=== PATIENT | female | born 1995 | race Caucasian/White ===

== ENCOUNTER 2017-05-19 19:37 | Emergency (ER) | payer OTHER ==
[~2017-05-19] VITALS: Ht 162.6 cm; Wt 104.3 kg
[~2017-05-19 19:37] MED LIST: MECL-56 PO
[2017-05-19 19:38] VITALS: BP 142/81
--- NOTE | 2017-05-19 20:15 | NUR ---
TO ER OF2
--- NOTE | 2017-05-19 20:36 | NUR ---
Patient being evaluated by physician.
--- NOTE | 2017-05-19 21:00 | NUR ---
21Y/F PT. PRESENTS TO ED WITH C/O ALLERGIC REACTIONS TO SHRIMP , WITH LIP AND FACE TINGLING SENSATION , VOMITING, 10 MINUTES AGO. 27 WEEKS , LMP NOV 09, NO SOB NOTED. AAO X4, AMBULATORY WITH STEADY GAIT. RESPIRATIONS ROOM AIR, EVEN AND UNLABORED. NO S/SX OF DISTRESS, VSS, ER MD MADE AWARE OF PT. STATUS.
[2017-05-19] MEDS ORDERED: diphenhydrAMINE 50 MG CAP PO ONE (21:15)
[2017-05-19 21:22] VITALS: BP 130/76
--- NOTE | 2017-05-19 21:22 | NUR ---
Patient discharged with v/s stable. Written and verbal after care instructions given and explained. Patient alert, oriented and verbalized understanding of instructions. Ambulatory with steady gait. All questions addressed prior to discharge. ID band removed. Patient advised to follow up with PMD. Rx of ZOFRAN ODT 4 MG, BENADRYL 25 MG. given. Patient educated on indication of medication including possible reaction and side effects. Opportunity to ask questions provided and answered.
== END 2017-05-19 21:22 | disposition home or self-care (01) ==
LOC: MED 19:37
DX: O9A.212 Injury, poisoning and certain other consequences of external causes complicating pregnancy, second trimester (principal); T61.8X1A Toxic effect of other seafood, accidental (unintentional), initial encounter; R11.2 Nausea with vomiting, unspecified; Z3A.27 27 weeks gestation of pregnancy; Z79.899 Other long term (current) drug therapy; Y92.89 Other specified places as the place of occurrence of the external cause
CPT/HCPCS: 99283; Q0163

== ENCOUNTER 2018-08-24 15:20 | Emergency (ER) | payer OTHER ==
[~2018-08-24] VITALS: Ht 157.5 cm; Wt 117.7 kg
[2018-08-24 15:26] VITALS: BP 127/76
[2018-08-24] MEDS ORDERED: ACETAMINOPHEN EXTRA STRENGTH 500 MG TAB PO ONE (20:00)
[2018-08-24] MEDS ORDERED: ACETAMINOPHEN EXTRA STRENGTH 500 MG TAB ONE (20:06)
[2018-08-24 21:32] VITALS: BP 120/75
== END 2018-08-24 21:31 | disposition home or self-care (01) ==
LOC: MED 15:20
DX: S63.501A Unspecified sprain of right wrist, initial encounter (principal); I10 Essential (primary) hypertension; Z79.899 Other long term (current) drug therapy; W01.0XXA Fall on same level from slipping, tripping and stumbling without subsequent striking against object, initial encounter; Y93.89 Activity, other specified; Y92.091 Bathroom in other non-institutional residence as the place of occurrence of the external cause; Y99.8 Other external cause status
CPT/HCPCS: 73110; 99284

== ENCOUNTER 2019-06-21 20:00 | Observation (INO) | payer OTHER ==
[~2019-06-21] VITALS: Ht 160 cm; Wt 115.2 kg
[2019-06-21] MEDS ORDERED: LACTATED RINGERS 1,000 ML IV SCH (20:30)
[2019-06-21 21:29] VITALS: BP 122/69
[2019-06-21 21:54] LABS: BASOPHILS % (AUTO) 0.3 % (0.0-2.0); EOSINOPHILS # (AUTO) 0.2 K/uL (0-0.4); EOSINOPHILS % (AUTO) 1.8 % (0.0-4.0); HEMATOCRIT 33.8 % (36-48); HEMOGLOBIN 11.1 g/dL (12.0-16.0); LYMPHOCYTES # (AUTO) 1.8 K/uL (2.5-16.5); LYMPHOCYTES % (AUTO) 14.5 % (20.5-51.1); MEAN CORPUSCULAR HEMOGLOBIN 26 pg (27-31); MEAN CORPUSCULAR HGB CONC 33 g/dL (33-37); MEAN CORPUSCULAR VOLUME 79.1 fL (80-94); MONOCYTES # (AUTO) 0.7 K/uL (0.8-1.0); MONOCYTES % (AUTO) 6.1 % (1.7-9.3); NEUTROPHILS # (AUTO) 9.4 K/uL (1.8-7.7); NEUTROPHILS % (AUTO) 77.3 % (42.2-75.2); PLATELET COUNT (AUTO) 310 K/uL (140-450); RED BLOOD CELL COUNT(AUTO) 4.28 MIL/uL (4.20-5.40); RED CELL DISTRIBUTION WIDTH 15.3 % (11.6-13.7); WHITE BLOOD COUNT (AUTO) 12.2 K/uL (4.8-10.8)
[2019-06-21 21:58] LABS: APPEARANCE,URINE HAZY (CLEAR); BILIRUBIN,URINE NEGATIVE (NEGATIVE); BLOOD, URINE NEGATIVE (NEGATIVE); COLOR,URINE YELLOW (YELLOW); LEUKOCYTE ESTERASE ,URINE 1+ (NEGATIVE); NITRITE, URINE NEGATIVE (NEGATIVE); UGLUCOSE NEGATIVE (NEGATIVE)
[2019-06-21 22:06] LABS: BARBITURATE, URINE NEG. ng/ml (NEG <=200); BENZODIAZEPINE, URINE NEG. ng/mL (NEG <=200); CANNABINOID, URINE NEG. ng/mL (NEG <=50); COCAINE, URINE NEG. ng/mL (NEG <=300); OPIATE, URINE NEG. ng/mL (NEG <=2000); PHENCYCLIDINE SCREEN,URINE NEG. ng/mL (NEG <=25); RBC,URINE 0-5 /HPF (0-5)
[2019-06-21 22:07] LABS: CALCIUM OXALATE CRYSTALS,UR 0-10 /HPF (None Seen); WBC,URINE 0-5 /HPF (0-5)
[2019-06-21 22:10] LABS: ALBUMIN 2.5 g/dL (3.4-5.0); ANION GAP 14.2 (8-16); CARBON DIOXIDE 22.3 mmol/L (21-32); CREATININE 0.6 mg/dL (0.6-1.3); POTASSIUM 3.5 mmol/L (3.5-5.1); TOTAL BILIRUBIN 0.6 mg/dL (0.0-1.0)
== END 2019-06-21 23:00 | disposition home or self-care (01) ==
LOC: MLD 20:00
PROVIDERS: ADMIT Obstetrics & Gynecology; ATTEND Obstetrics & Gynecology
DX: O26.893 Other specified pregnancy related conditions, third trimester (principal); R42 Dizziness and giddiness; O99.213 Obesity complicating pregnancy, third trimester; O16.3 Unspecified maternal hypertension, third trimester; R10.9 Unspecified abdominal pain; Z3A.32 32 weeks gestation of pregnancy
CPT/HCPCS: 36415; 80053; 80305; 81001; 85025; 87086; G0378

== ENCOUNTER 2020-08-08 17:14 | Emergency (ER) | payer SELFPAY ==
[~2020-08-08] VITALS: Ht 162.6 cm; Wt 127.2 kg
[2020-08-08 17:16] VITALS: BP 141/112
--- NOTE | 2020-08-08 17:27 | NUR ---
AMBULATED TO BED 4
--- NOTE | 2020-08-08 17:31 | NUR ---
25 y/o female from home c/o bilateral wrist tingling and pain x 2 years. Pt denies trauma/injury. Increased pain when writing/typing on computer. 10/10 aching pain at this time. No swelling/deformities noted. Skin warm, dry, and intact. VSS medhx: HTN
--- NOTE | 2020-08-08 17:42 | NUR ---
Dr Jackson at bedside examining pt
[2020-08-08 18:21] VITALS: BP 141/112
--- NOTE | 2020-08-08 18:21 | NUR ---
Patient discharged with v/s stable. Written and verbal after care instructions given and explained. Patient alert, oriented and verbalized understanding of instructions. Ambulatory with steady gait. All questions addressed prior to discharge. ID band removed. Patient advised to follow up with PMD. Rx of Ibuprofen 600mg given. Patient educated on indication of medication including possible reaction and side effects. Opportunity to ask questions provided and answered.
== END 2020-08-08 18:21 | disposition home or self-care (01) ==
LOC: MED 17:14
DX: M25.531 Pain in right wrist (principal); M25.532 Pain in left wrist; I10 Essential (primary) hypertension; X58.XXXA Exposure to other specified factors, initial encounter; Y93.89 Activity, other specified; Y92.89 Other specified places as the place of occurrence of the external cause; Y99.8 Other external cause status
CPT/HCPCS: 99283

== ENCOUNTER 2021-09-07 21:30 | Emergency (ER) | payer MEDICAID, OTHER ==
[~2021-09-07] VITALS: Ht 165.1 cm; Wt 113.4 kg
--- NOTE | 2021-09-07 21:37 | NUR ---
PT MARKEL ALS. TAKEN TO BED 1
[2021-09-07 21:47] VITALS: BP 173/104
--- NOTE | 2021-09-07 22:12 | NUR ---
PATIENT ASSISSTED TO RESTROOM AT THIS TIME.
--- NOTE | 2021-09-07 23:12 | NUR ---
IZAIAH CANDELARIO ASSESSED PATIENT.
--- NOTE | 2021-09-07 23:37 | NUR ---
PATIENT CLEARED FOR DISCHARGE AT THIS TIME. LEFT WITHOUT PAPERWORK OR SIGNATURES, DID NOT WISH TO WAIT FOR DSICHARGE PAPERS. ER NOTIFIED, PATINET ADVISED TO FOLLOW UP WITH PCP AND RETURN IF CONFITION WORENS.
[2021-09-07 23:38] VITALS: BP 158/88
== END 2021-09-07 23:37 | disposition home or self-care (01) ==
LOC: MED 21:30
DX: R07.89 Other chest pain (principal); F41.0 Panic disorder [episodic paroxysmal anxiety]; F32.9 Major depressive disorder, single episode, unspecified; I10 Essential (primary) hypertension; Z79.899 Other long term (current) drug therapy
CPT/HCPCS: 99283

== ENCOUNTER 2023-04-17 03:05 | Emergency (ER) | payer OTHER ==
[~2023-04-17] VITALS: Ht 160 cm; Wt 113.4 kg
[2023-04-17 03:10] VITALS: BP 161/92; PULSE 111; RESP 17; TEMP 98; O2SAT 98
--- NOTE | 2023-04-17 03:10 | NUR ---
to bed ambulatory
[2023-04-17] MEDS ORDERED: LABETALOL 100 MG TAB PO ONE (03:30)
--- NOTE | 2023-04-17 03:30 | NUR ---
URINE SPECIMEN SENT TO LAB
--- NOTE | 2023-04-17 03:35 | NUR ---
Dr. Varghese examining patient.
--- NOTE | 2023-04-17 03:38 | NUR ---
PATIENT RESTING IN BED, A/OX4, CHEST RISE AND FALL SYMMETRICAL, NO S/S OF DISTRESS, ON MONITOR.
[2023-04-17] MEDS ORDERED: LABETALOL 200 MG TAB ONE (03:39)
[2023-04-17] MEDS ORDERED: CRUSHER, PILL MC ONE (03:40)
[2023-04-17 03:46] LABS: APPEARANCE,URINE CLOUDY (CLEAR); BILIRUBIN,URINE NEGATIVE (NEGATIVE); BLOOD, URINE NEGATIVE (NEGATIVE); COLOR,URINE YELLOW (YELLOW); LEUKOCYTE ESTERASE ,URINE 1+ (NEGATIVE); NITRITE, URINE NEGATIVE (NEGATIVE); PH,URINE 6.5 (5.0-9.0); UGLUCOSE NEGATIVE (NEGATIVE)
[2023-04-17 03:50] LABS: RBC,URINE 0-5 /HPF (0-5)
[2023-04-17 03:55] LABS: BASOPHILS % (AUTO) 0.3 % (0.0-2.0); EOSINOPHILS # (AUTO) 0.1 K/uL (0-0.4); EOSINOPHILS % (AUTO) 0.9 % (0.0-4.0); HEMATOCRIT 36.7 % (36-48); HEMOGLOBIN 12.6 g/dL (12.0-16.0); LYMPHOCYTES # (AUTO) 1.9 K/uL (2.5-16.5); MEAN CORPUSCULAR HEMOGLOBIN 28 pg (27-31); MEAN CORPUSCULAR HGB CONC 34 g/dL (33-37); MEAN CORPUSCULAR VOLUME 80.9 fL (80-94); MONOCYTES # (AUTO) 0.7 K/uL (0.8-1.0); NEUTROPHILS # (AUTO) 8.1 K/uL (1.8-7.7); NEUTROPHILS % (AUTO) 74.8 % (42.2-75.2); PLATELET COUNT (AUTO) 334 K/uL (140-450); RED BLOOD CELL COUNT(AUTO) 4.54 MIL/uL (4.20-5.40); RED CELL DISTRIBUTION WIDTH 14.9 % (11.6-13.7); WHITE BLOOD COUNT (AUTO) 10.8 K/uL (4.8-10.8)
[2023-04-17 04:04] LABS: ALBUMIN 3.1 g/dL (3.4-5.0); ANION GAP 14.5 (8-16); CARBON DIOXIDE 24.8 mmol/L (21-32); CREATININE 0.6 mg/dL (0.6-1.3); POTASSIUM 3.3 mmol/L (3.5-5.1); TOTAL BILIRUBIN 0.6 mg/dL (0.0-1.0)
--- NOTE | 2023-04-17 04:14 | NUR ---
ULTRASOUND AT BEDSIDE
--- NOTE | 2023-04-17 05:10 | NUR ---
PATIENT RESTING IN BED, A/OX4, CHEST RISE AND FALL SYMMETRICAL, NO C/O PAIN OR S/S OF DISTRESS, ON MONITOR.
[2023-04-17] MEDS ORDERED: NITR100C7 PO (05:33)
[2023-04-17] MEDS ORDERED: LABE100T63 PO (05:33)
[2023-04-17 05:40] VITALS: BP 132/78; PULSE 85; RESP 16; TEMP 98.3; O2SAT 99
== END 2023-04-17 05:40 | disposition home or self-care (01) ==
LOC: MED 03:05
DX: O26.891 Other specified pregnancy related conditions, first trimester (principal); O16.2 Unspecified maternal hypertension, second trimester; R07.9 Chest pain, unspecified; I10 Essential (primary) hypertension; Z79.899 Other long term (current) drug therapy; Z3A.18 18 weeks gestation of pregnancy
CPT/HCPCS: 36415; 76805; 80053; 81001; 81025; 84484; 85025; 87086; 93005; 99285; Q0092

== ENCOUNTER 2024-04-13 12:01 | Emergency (ER) | payer OTHER ==
[~2024-04-13] VITALS: Ht 162.6 cm; Wt 127.0 kg
[~2024-04-13 12:01] MED LIST changes: +LABE100T63 PO; +NITR100C7 PO
[2024-04-13 12:18] VITALS: BP 172/103; PULSE 86; RESP 18; TEMP 98.2; O2SAT 99
== END 2024-04-13 14:04 | disposition home or self-care (01) ==
LOC: MED 12:01
DX: S63.591A Other specified sprain of right wrist, initial encounter (principal); Z79.899 Other long term (current) drug therapy; X58.XXXA Exposure to other specified factors, initial encounter; Y93.89 Activity, other specified; Y92.89 Other specified places as the place of occurrence of the external cause; Y99.8 Other external cause status
CPT/HCPCS: 73110; 81025; 99283